=== PATIENT | female | born 1965 | race Caucasian/White ===

== ENCOUNTER 2023-08-14 09:25 | Emergency (ER) | payer OTHER ==
--- NOTE | 2023-08-14 10:38 | ED Physician Documentation ---
PD HPI URI - Stated complaint Stated Complaint: SOA,COUGH - Chief complaint Chief Complaint: Resp - History obtained from History obtained from: Patient - History of Present Illness Timing - onset: Today, Last night Timing duration: Days (1) Timing details: Abrupt onset, Still present Associated symptoms: Sinus pain, Dry cough, Dyspnea. No: Fever, Chills, Nasal congestion, Rhinorrhea, Sore throat, Bilateral edema Contributing factors: Travel (arrived from [place] to visit daughter just yesterday. Daughter with some pets. Pt with history of some allergies. Does not feel ill/sick.). No: Sick contact Worsened by: Activity Recently seen: Not recently seen Review of Systems Constitutional: denies: Fever, Chills, Myalgias Nose: reports: Congestion, Sinus pressure / pain Throat: denies: Sore throat Respiratory: reports: Dyspnea, Cough, Wheezing GI: denies: Nausea, Vomiting, Diarrhea Skin: denies: Rash PD PAST MEDICAL HISTORY - Past Medical History Past Medical History: Yes Cardiovascular: None Respiratory: Other (reactive airways in the past at times. no consistent asthma. 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 : None Psych: None Musculoskeletal: None Other Past Medical History: hernia repair - Past Surgical History Past Surgical History: Yes General: Bowel surgery - Present Medications Home Medications: Ambulatory Orders Medication Instructions Recorded Confirmed Albuterol Sulf [Ventolin Hfa 1 - 2 puffs INH Q4HR PRN #1 each 08/14/23 Inhaler] dexAMETHasone [Decadron] 4 mg PO DAILY #5 tablet 08/14/23 - Allergies Allergies/Adverse Reactions: Allergies Allergy/AdvReac Type Severity Reaction Status Date / Time No Known Drug Allergies Allergy Verified 08/14/23 09:33 - Social History Does the pt smoke?: No Smoking Status: Never smoker Does the pt drink ETOH?: Yes ETOH Use: Wine Does the pt have substance abuse?: Yes Substance Use and Type: CBD oil / Products - Immunizations Immunizations are current?: Yes - POLST Patient has POLST: No Results - Vitals Vitals: Oxygen O2 Source Room air PD Medical Decision Making - ED course Complexity details: considered differential (she has wheezing, some cough, dyspnea. No fevers, aches, chills. Consider environmental allergies as arrived here visiting just yesterday. Could be early viral illness. She did COVID test negative at home. ), d/w patient Departure - Departure Disposition: 01 Home, Self Care Clinical Impression: Wheezing, Environmental allergies Condition: Stable Prescriptions: Albuterol Sulf [Ventolin Hfa Inhaler] 1 - 2 puffs INH Q4HR PRN #1 each PRN Reason: Shortness Of Air/Wheezing dexAMETHasone [Decadron] 4 mg PO DAILY #5 tablet Comments: I presume your symptoms relate to environmental allergies/irritation. It can be precipitated by change in location such as you are visiting here. There may be other irritants in the environment. Other possibility would be the start of a viral type illness. See how you feel over the next few days with developing any cough, chills, body aches, head cold type symptoms. Otherwise this may may be continued as you are still here. As such I would have you use albuterol inhaler 2 puffs 4 times a day if needed for wheezing and trouble breathing. Also Decadron steroid anti-inflammatory for a few days to reduce the allergy reaction component. Forms: PCP List Discharge Date/Time: 08/14/23 11:44
[2023-08-14] MEDS: dexAMETHasone 4 MG TABLET PO STA (11:11)
[2023-08-14] MEDS: ALBUTEROL 1 PUFF INH STA (11:15)
[2023-08-14 11:48] VITALS: BP 134/82; O2SAT 100
== END 2023-08-14 11:44 | disposition home or self-care (01) ==
LOC: ED 09:25
DX: R06.2 Wheezing (principal); T78.40XA Allergy, unspecified, initial encounter
CPT/HCPCS: 94640; 99283; J8540